=== PATIENT | female | born 1985 ===

== ENCOUNTER 2022-09-05 09:10 | Outpatient (RCR) | payer OTHER, SELFPAY ==
--- NOTE | 2022-09-07 10:09 | PC.NURSE ---
Patient called the program on 09/06/22 and told staff she would not be in as her son is sick with the flu. Patient called this morning and stated she would not be in today as she has the flu as well. Patient to follow up with her PCP regarding the flu. Encouraged her to increase fluid intake. Asked patient if she was feeling safe and she reported she was, not feeling physically well. Patient stated she does have a psychiatrist appointment coming up in 2 weeks. I told her when she is feeling better to call the program for a reassessment. Patient agreed. [facility] staff is aware.
== END 2022-09-05 23:59 | disposition home or self-care (01) ==
LOC: HO.PHPA 09:10
PROVIDERS: Visit Provider Psychiatry & Neurology Psychiatry
DX: F31.9 Bipolar disorder, unspecified (principal)